=== PATIENT | female | born 1975 | race Caucasian/White ===

== ENCOUNTER → 2024-03-16 | Outpatient (REF) | payer BC ==
[~2024-03-16] MED LIST: AMBIEN10 MG PO; ATORVASTATIN CA10 MG PO; CLINDAMYCIN HC150 MG PO; IOPAMIDOL 370 MG/ML 100 ML INFUS..BTL INJ ONE; LEVOTHYROXINE50 MCG PO
== END ==
LOC: CT 11:07
PROVIDERS: ATTEND Internal Medicine
DX: I20.9 Angina pectoris, unspecified (principal)
CPT/HCPCS: Q9967